=== PATIENT | male | born 1975 | race Caucasian/White ===

== ENCOUNTER 2017-07-22 18:00 | Emergency (ER) | payer BC ==
[2017-07-22 18:32] LABS: AMORPHOUS SEDIMENT,URINE 1+ /HPF; APPEARANCE,URINE TURBID; BILIRUBIN,URINE NEGATIVE (NEGATIVE); GLUCOSE, URINE NEGATIVE (NEGATIVE); KETONES,URINE NEGATIVE (NEGATIVE); LEUKOCYTE ESTERASE,URINE NEGATIVE (NEGATIVE); NITRITE,URINE NEGATIVE (NEGATIVE); PROTEIN,URINE 100 mg/dL (NEGATIVE); URINE SPECIFIC GRAVITY 1.023
[2017-07-22 18:36] LABS: COLOR,URINE DARK YELLOW
[2017-07-22] MEDS ORDERED: FENTANYL CITRATE INJ/PF 100 MCG/2 ML AMPUL IV PRN (19:26)
[2017-07-22] MEDS ORDERED: NORMAL SALINE 1000 ML 1,000 ML IV ONE (19:27)
--- NOTE | 2017-07-22 19:31 | ER Document Report ---
ED General - General Chief Complaint: Flank Pain Stated Complaint: FLANK PAIN Time Seen by Provider: 07/22/17 19:23 Notes: 41-year-old male to the emergency department chief complaint of left flank pain. Symptoms began approximately 1600 today. Sudden onset. Positive nausea. Located in the left flank radiating down into the left lower abdomen. Feels like he needs to urinate but cannot. Took some apple cider vinegar and seems to have made it worse. Denies any fever or chills. No other major symptoms at this time. Pain is described as 5/5 on a numeric pain scale. TRAVEL OUTSIDE OF THE [place] IN LAST 30 DAYS: No - HPI Onset: Just prior to arrival Onset/Duration: Sudden - Related Data Allergies/Adverse Reactions: No Known Allergies Allergy (Unverified 07/22/17 18:01) Past Medical History - General Information source: Patient - Social History Smoking Status: Former Smoker Cigarette use (# per day): No Frequency of alcohol use: Rare Drug Abuse: None Lives with: Spouse/Significant other Family History: Reviewed & Not Pertinent Patient has suicidal ideation: No Patient has homicidal ideation: No - Medical History Medical History: Negative Renal/ Medical History: Denies: Hx Peritoneal Dialysis Review of Systems - Review of Systems Constitutional: No symptoms reported EENT: No symptoms reported Cardiovascular: No symptoms reported Respiratory: No symptoms reported Gastrointestinal: See HPI, Nausea Genitourinary: Flank pain, Hematuria, Urgency Male Genitourinary: No symptoms reported Musculoskeletal: No symptoms reported Skin: No symptoms reported Hematologic/Lymphatic: No symptoms reported Neurological/Psychological: No symptoms reported Physical Exam - Vital signs Vitals: Temp Pulse Resp BP Pulse Ox 97.5 F 67 20 132/81 H 100 07/22/17 18:12 07/22/17 18:12 07/22/17 18:12 07/22/17 18:12 07/22/17 18:12 Interpretation: Normal - General General appearance: Appears well, Alert, Other - Very uncomfortable appearing - HEENT Head: Normocephalic, Atraumatic Eyes: Normal Pupils: PERRL - Respiratory Respiratory status: No respiratory distress Chest status: Nontender Breath sounds: Normal Chest palpation: Normal - Cardiovascular Rhythm: Regular Heart sounds: Normal auscultation Murmur: No - Abdominal Inspection: Normal Distension: No distension Bowel sounds: Normal Tenderness: Nontender Organomegaly: No organomegaly - Back Back: Normal, CVA tenderness, Other - Mild left flank tenderness. - Extremities General upper extremity: Normal inspection, Nontender, Normal color, Normal ROM , Normal temperature General lower extremity: Normal inspection, Nontender, Normal color, Normal ROM , Normal temperature, Normal weight bearing. No: Alfonso's sign - Neurological Neuro grossly intact: Yes Cognition: Normal Orientation: AAOx4 [place] Coma Scale Eye Opening: Spontaneous [place] Coma Scale Verbal: Oriented [place] Coma Scale Motor: Obeys Commands [place] Coma Scale Total: 15 Speech: Normal Motor strength normal: LUE, RUE, LLE, RLE Sensory: Normal - Psychological Associated symptoms: Normal affect, Normal mood - Skin Skin Temperature: Warm Skin Moisture: Dry Skin Color: Normal Course - Re-evaluation Re-evalutation: 07/22/17 19:31 Unlikely this represents a kidney stone. We will get some basic labs, fluids, pain meds, CT and reassess. - Vital Signs Vital signs: Temp Pulse Resp BP Pulse Ox 97.5 F 67 20 132/81 H 100 07/22/17 18:12 07/22/17 18:12 07/22/17 18:12 07/22/17 18:12 07/22/17 18:12 - Laboratory Result Diagrams: 07/22/17 19:25 07/22/17 19:25 Laboratory results interpreted by me: 07/22/17 07/22/17 07/22/17 18:02 19:25 19:25 WBC 13.7 H Seg Neutrophils % 84.7 H Lymphocytes % 8.8 L Absolute Neutrophils 11.6 H Sodium 146.4 H BUN 21 H Urine Protein 100 H Urine Blood LARGE H Urine Urobilinogen 4.0 H Discharge - Discharge Clinical Impression: Left flank pain
[2017-07-22 19:38] LABS: ABSOLUTE LYMPHOCYTES (AUTO) 1.2 10^3/uL (0.5-4.7); ABSOLUTE MONOCYTES (AUTO) 0.8 10^3/uL (0.1-1.4); ABSOLUTE NEUT (AUTO) 11.6 10^3/uL (1.7-8.2); BASOPHILS % (AUTO) 0.3 % (0-2); EOSINOPHILS % (AUTO) 0.1 % (0-6); HEMOGLOBIN 15.9 g/dL (13.5-17.0); LYMPHOCYTES % (AUTO) 8.8 % (13-45); MEAN CORPUSCULAR HEMOGLOBIN 29.7 pg (27.0-33.4); MEAN CORPUSCULAR HGB CONC 33.9 g/dL (32.0-36.0); MEAN CORPUSCULAR VOLUME 88 fl (80-97); MONOCYTES % (AUTO) 6.1 % (3-13); PLATELET COUNT 296 10^3/uL (150-450); RED BLOOD COUNT 5.37 10^6/uL (4.35-5.55); RED CELL DISTRIBUTION WIDTH 13.6 % (11.5-14.0); SEGMENTED NEUTROPHILS % (AUTO) 84.7 % (42-78); TOTAL CELLS COUNTED % (AUTO) 100 %; WHITE BLOOD COUNT 13.7 10^3/uL (4.0-10.5)
[2017-07-22] MEDS ORDERED: KETOROLAC TROMETHAMINE INJ/PF 30 MG/1 ML SDV IV ONE (19:51)
[2017-07-22] MEDS ORDERED: ONDANSETRON HCL INJ/PF 4 MG/2 ML SDV IV ONE (19:52)
[2017-07-22 20:11] LABS: ALANINE AMINOTRANSFERASE 31 U/L (21-72); ALBUMIN 4.5 g/dL (3.5-5.0); ALKALINE PHOSPHATASE 120 U/L (38-126); ANION GAP 14 (5-19); ASPARTATE AMINO TRANSFERASE 27 U/L (17-59); BILIRUBIN,DIRECT 0.3 mg/dL (0.0-0.4); BILIRUBIN,TOTAL 0.7 mg/dL (0.2-1.3); BLOOD UREA NITROGEN 21 mg/dL (7-20); CALCIUM 10.1 mg/dL (8.4-10.2); CARBON DIOXIDE 26 mmol/L (22-30); CHLORIDE 106 mmol/L (98-107); GLUCOSE 100 mg/dL (75-110); POTASSIUM 4.1 mmol/L (3.6-5.0); SODIUM 146.4 mmol/L (137-145); TOTAL PROTEIN 7.8 g/dL (6.3-8.2)
--- NOTE | 2017-07-22 20:24 | RADIOLOGY REPORT (SQ) ---
EXAM DESCRIPTION: CT ABD/PELVIS NO ORAL OR IV COMPLETED DATE/TIME: 07/22/2017 8:08 pm REASON FOR STUDY: left flank pain COMPARISON: None. TECHNIQUE: CT scan of the abdomen and pelvis performed without intravenous or oral contrast. Images reviewed with lung, soft tissue, and bone windows. Reconstructed coronal and sagittal MPR images revi ewed. All images stored on PACS. All CT scanners at this facility use dose modulation, iterative reconstruction, and/or weight based d osing when appropriate to reduce radiation dose to as low as reasonably achievable (ALARA). [facility]: Dose Right [facility]: CareDose [facility]: Dose Right [facility]: Teradose 4D [facility]: Smart ReflexPhotonics RADIATION DOSE: CT Rad equipment meets quality standard of care and radiation dose reduction techniq ues were employed. CTDIvol: 5.5 mGy. DLP: 295 mGy-cm.mGy. LIMITATIONS: None. FINDINGS: LOWER CHEST: No significant findings. No nodules or infiltrates. NON-CONTRASTED LIVER, SPLEEN, ADRENALS: Evaluation limited by lack of IV contrast. No identified sign ificant masses. PANCREAS: No masses. No peripancreatic inflammatory changes. GALLBLADDER: No identified stones by CT criteria. No inflammatory changes to suggest cholecystitis. RIGHT KIDNEY AND URETER: No suspicious masses. Assessment limited by lack of IV contrast. No signif icant calcifications. No hydronephrosis or hydroureter. LEFT KIDNEY AND URETER: No suspicious masses. Assessment limited by lack of IV contrast. No signifi cant calcifications. No hydronephrosis or hydroureter. AORTA AND RETROPERITONEUM: No aneurysm. No retroperitoneal masses or adenopathy. BOWEL AND PERITONEAL CAVITY: Scattered colonic diverticula. No obvious masses or inflammatory change s. No free fluid. APPENDIX: Not visualized. PELVIS, BLADDER, AND ABDOMINAL WALL:No abnormal masses. No free fluid. Bladder normal. BONES: Degenerative disc disease L5-S1. No fracture or suspicious osseous lesion. OTHER: No other significant finding. IMPRESSION: NO URINARY TRACT STONES OR HYDRONEPHROSIS. DIVERTICULOSIS WITHOUT DIVERTICULITIS. DEGENERATIVE DISC DISEASE L5-S1. COMMENT: Quality ID # [id number]: Final reports with documentation of one or more dose reduction techniques (e.g., Automated exposure control, adjustment of the mA and/or kV according to patient size, use of iterative reconstruction technique) TECHNICAL DOCUMENTATION: JOB ID: [id number]- All Rights Reserved Reading location - IP/workstation name: [email or web address]
--- NOTE | 2017-07-22 20:27 | ER Document Report ---
ED GI/ - General Chief Complaint: Flank Pain Stated Complaint: FLANK PAIN Time Seen by Provider: 07/22/17 19:23 Notes: Patient is a 41-year-old male that comes emergency department for chief complaint of sharp left flank pain radiating around to his left mid to lower abdomen and nausea. Symptom onset approximately 1600. Sudden onset. He also has some urinary hesitancy. He denies hematuria, fever, vomiting. Denies trauma. He denies history of kidney stones. He denies any surgeries or daily medications. Denies smoking, rare alcohol, denies recreational drugs. TRAVEL OUTSIDE OF THE [place] IN LAST 30 DAYS: No - Related Data Allergies/Adverse Reactions: No Known Allergies Allergy (Unverified 07/22/17 18:01) Past Medical History - General Information source: Patient - Social History Smoking Status: Former Smoker Cigarette use (# per day): No Frequency of alcohol use: Rare Drug Abuse: None Lives with: Spouse/Significant other Family History: Reviewed & Not Pertinent Patient has suicidal ideation: No Patient has homicidal ideation: No - Medical History Medical History: Negative Renal/ Medical History: Denies: Hx Peritoneal Dialysis Review of Systems - Review of Systems Constitutional: No symptoms reported EENT: No symptoms reported Cardiovascular: No symptoms reported Respiratory: No symptoms reported Gastrointestinal: See HPI Genitourinary: See HPI Male Genitourinary: See HPI Musculoskeletal: No symptoms reported Skin: No symptoms reported Hematologic/Lymphatic: No symptoms reported Neurological/Psychological: No symptoms reported Physical Exam - Vital signs Vitals: Temp Pulse Resp BP Pulse Ox 97.5 F 67 20 132/81 H 100 07/22/17 18:12 07/22/17 18:12 07/22/17 18:12 07/22/17 18:12 07/22/17 18:12 - Notes Notes: GENERAL: Alert, interacts well. No acute distress. HEAD: Normocephalic, atraumatic. EYES: Pupils equal, round, and reactive to light. Extraocular movements intact. ENT: Oral mucosa moist, tongue midline. NECK: Full range of motion. Supple. Trachea midline. LUNGS: Clear to auscultation bilaterally, no wheezes, rales, or rhonchi. No respiratory distress. HEART: Regular rate and rhythm. No murmur ABDOMEN: Soft, non-tender. Non-distended. Bowel sounds present in all 4 quadrants. EXTREMITIES: Moves all 4 extremities spontaneously. No edema, normal radial and dorsalis pedis pulses bilaterally. No cyanosis. BACK: no cervical, thoracic, lumbar midline tenderness. No saddle anesthesia, normal distal neurovascular exam. No CVA tenderness. NEUROLOGICAL: Alert and oriented x3. Normal speech. [cranial nerves II through XII grossly intact]. PSYCH: Normal affect, normal mood. SKIN: Warm, dry, normal turgor. No rashes or lesions noted. Course - Re-evaluation Re-evalutation: CT performed before I evaluated the patient. This was unremarkable. CBC shows mild leukocytosis, otherwise unremarkable, chemistry unremarkable including renal functioning, urine does show hematuria. Patient states he feels much better when I evaluated him, he states he is getting intermittent sharp pains but nothing like before. He has urinated a couple times. I suspect patient did pass a kidney stone, no remaining concerns. No concerning deficits, no fever, benign abdomen on exam. He was provided with some symptom management, discussed results, follow-up, return precautions. Patient states understanding and agreement. - Vital Signs Vital signs: Temp Pulse Resp BP Pulse Ox 97.9 F 67 18 132/87 H 100 07/22/17 21:28 07/22/17 18:12 07/22/17 21:28 07/22/17 21:28 07/22/17 21:28 - Laboratory Result Diagrams: 07/22/17 19:25 07/22/17 19:25 Laboratory results interpreted by me: 07/22/17 07/22/17 07/22/17 18:02 19:25 19:25 WBC 13.7 H Seg Neutrophils % 84.7 H Lymphocytes % 8.8 L Absolute Neutrophils 11.6 H Sodium 146.4 H BUN 21 H Urine Protein 100 H Urine Blood LARGE H Urine Urobilinogen 4.0 H Discharge - Discharge Clinical Impression: Left flank pain Hematuria Qualifiers: Hematuria type: unspecified type Qualified Code(s): R31.9 - Hematuria, unspecified Condition: Stable Disposition: HOME, SELF-CARE Additional Instructions: No abnormality is seen on your scan, you do have blood in your urine, based on your evaluation, symptoms, and blood in the urine I suspect that you passed a kidney stone tonight. You have been provided with some pain medicine for the next couple of days, take nausea medication if needed as well. Follow-up with primary care. Return for any concerning symptoms including worsening pain, fever, or any other concerning symptoms. Prescriptions: Morphine Sulfate [Morphine Ir 15 Mg Tablet] 15 mg PO Q4HP PRN #8 tablet PRN Reason: Ketorolac Tromethamine [Toradol 10 mg Tablet] 10 mg PO Q8HP PRN #24 tablet PRN Reason: Promethazine HCl [Phenergan 25 mg Tablet] 1 - 2 tab PO Q6H PRN #15 tablet PRN Reason:
[2017-07-22] MEDS ORDERED: MORPHINE SULFATE 10 MG/ML INJ IV ONE (21:07)
[2017-07-22 21:29] VITALS: BP 132/87
== END 2017-07-22 21:29 | disposition home or self-care (01) ==
LOC: ER 18:00
DX: R11.0 Nausea (principal); R31.9 Hematuria, unspecified; R10.9 Unspecified abdominal pain; Z87.891 Personal history of nicotine dependence
CPT/HCPCS: 99284; 96361; 96374; 96375; 36415; 87086; 85025; 80053; 81001; 74176; J3010; J1885; J2270; J2405; J7030